=== PATIENT | male | born 1955 | race African-American/Black ===

== ENCOUNTER 2020-11-26 13:35 | Outpatient (CLI) | payer OTHER | END 2020-11-26 13:36 | disposition home or self-care (01) | LOC: BICULT 13:35 | PROVIDERS: ATTEND Urology | DX: N13.5 Crossing vessel and stricture of ureter without hydronephrosis (principal) | CPT/HCPCS: 76770 ==

== ENCOUNTER 2022-03-12 08:03 | Outpatient (CLI) | payer MEDICARE ==
[2022-03-12] MEDS ORDERED: Iopamidol 370 76% 100 ML VIAL ONE (09:31)
== END 2022-03-12 08:04 | disposition home or self-care (01) ==
LOC: CT 08:03
PROVIDERS: ATTEND Internal Medicine Hematology & Oncology
DX: C79.51 Secondary malignant neoplasm of bone (principal); C61 Malignant neoplasm of prostate; R31.9 Hematuria, unspecified; R59.0 Localized enlarged lymph nodes; N32.89 Other specified disorders of bladder; N42.89 Other specified disorders of prostate
CPT/HCPCS: 71260; 74177; 78306; A9503; Q9967

== ENCOUNTER 2022-10-03 10:16 | Outpatient (CLI) | payer MEDICARE ==
[2022-10-03] MEDS ORDERED: Iopamidol 370 76% 100 ML VIAL ONE (10:34)
== END 2022-10-03 10:17 | disposition home or self-care (01) ==
LOC: CT 10:16
PROVIDERS: ATTEND Internal Medicine Hematology & Oncology
DX: C61 Malignant neoplasm of prostate (principal); C79.51 Secondary malignant neoplasm of bone; T85.868A Thrombosis due to other internal prosthetic devices, implants and grafts, initial encounter; N32.89 Other specified disorders of bladder
CPT/HCPCS: 71260; 74177; 78306; 82565; A9503

== ENCOUNTER 2024-06-01 10:12 | Day surgery (SDC) | payer MEDICARE ==
[2024-06-01] MEDS ORDERED: Acetaminophen 500 MG TAB ONE (13:44)
[2024-06-01] MEDS ORDERED: diphenhydrAMINE 25 MG CAP ONE (13:45)
[2024-06-01] MEDS: Acetaminophen 500 MG TAB PO SCH (13:45)
[2024-06-01] MEDS: diphenhydrAMINE 25 MG CAP PO SCH (13:45)
[2024-06-01 16:23] VITALS: TEMP 98.3
[2024-06-01 18:00] VITALS: BP 112/61
== END 2024-06-01 18:09 | disposition home or self-care (01) ==
LOC: ONC/OP 10:12
PROVIDERS: ATTEND Internal Medicine Hematology & Oncology
DX: D64.9 Anemia, unspecified (principal); D69.6 Thrombocytopenia, unspecified
CPT/HCPCS: 36430; 86850; 86900; 86901; 86920; P9016

== ENCOUNTER 2024-07-20 10:42 | Day surgery (SDC) | payer MEDICARE ==
[2024-07-20] MEDS ORDERED: diphenhydrAMINE 25 MG CAP PO SCH (11:30)
[2024-07-20] MEDS ORDERED: Acetaminophen 500 MG TAB ONE (12:05)
[2024-07-20] MEDS: Acetaminophen 500 MG TAB PO SCH (12:06)
[2024-07-20 16:54] VITALS: BP 111/63; TEMP 98.5
== END 2024-07-20 17:18 | disposition home or self-care (01) ==
LOC: ONC/OP 10:42
PROVIDERS: ATTEND Internal Medicine Hematology & Oncology
DX: D64.9 Anemia, unspecified (principal); D69.6 Thrombocytopenia, unspecified; Z85.46 Personal history of malignant neoplasm of prostate; Z85.830 Personal history of malignant neoplasm of bone
CPT/HCPCS: 36430; 86850; 86900; 86901; 86920; P9016; 71046

== ENCOUNTER 2024-07-20 12:48 | Outpatient (CLI) | payer MEDICARE | END 2024-07-20 12:49 | disposition home or self-care (01) | LOC: RAD 12:48 | PROVIDERS: ATTEND Internal Medicine | DX: C79.51 Secondary malignant neoplasm of bone (principal); R31.9 Hematuria, unspecified; C61 Malignant neoplasm of prostate | CPT/HCPCS: 71046 ==

== ENCOUNTER 2025-08-23 09:34 | Day surgery (SDC) | payer MEDICARE ==
[2025-08-23] MEDS ORDERED: diphenhydrAMINE 25 MG CAP PO SCH (10:15)
[2025-08-23] MEDS ORDERED: Acetaminophen 500 MG TAB ONE (10:57)
[2025-08-23] MEDS: Acetaminophen 500 MG TAB PO SCH (10:57)
[2025-08-23 14:20] VITALS: BP 131/60; TEMP 97.7
== END 2025-08-23 13:54 | disposition home or self-care (01) ==
LOC: ONC/OP 09:34
PROVIDERS: ATTEND Internal Medicine Hematology & Oncology
DX: D64.9 Anemia, unspecified (principal)
CPT/HCPCS: 36430; 86850; 86900; 86901; 86920; J1642; P9016